=== PATIENT | male | born 1965 | race Asian ===

== ENCOUNTER 2020-02-26 15:47 | Emergency (ER) | payer MEDICAID ==
[~2020-02-26] VITALS: Ht 182.9 cm; Wt 99.8 kg
[2020-02-26 16:24] VITALS: BP 114/76
--- NOTE | 2020-02-26 16:47 | Diagnostic Imaging Report ---
EXAM: CT CT Head no Contrast INDICATION: Status post fall with head pain and slight dizziness. TECHNIQUE: Axial images of the brain were obtained with subsequent sagittal and coronal reformats. All CT scans at this facility are performed using dose modulation techniques as appropriate to a performed exam including the following: automated exposure control with adjustment of the mA and/or kV according to patient size. COMPARISON STUDY: None. RADIATION DOSE: CTDIvol: 53.4 mGy DLP: 912 mGy-cm Dose information generated by the CT scanner is available in PACS. FINDINGS: At the left frontal vertex on images 22-24, there is questionable subtle slight hyperdensity noted in the sulci adjacent to the gyral margin. With history of trauma, question possible tiny amount of subarachnoid hemorrhage. In the left basal ganglia and left hernandez radiata, subtle hypodensity noted likely microischemic in nature. No mass effect or shift demonstrated. Ventricles and cisterns as well as brainstem and posterior fossa appear unremarkable. The sellar region is normal. Sinuses, mastoid air cells and bony calvarium appear intact. IMPRESSION: Slight subtle hyperdensity noted at the left frontal vertex questionable for a tiny amount of subarachnoid hemorrhage. Recommend follow-up. Mild hypodensities in the left hernandez radiata as well as left basal ganglia most likely microischemic in nature. Findings called to the ED physician 02/18/2020 at 4:38 PM.
[2020-02-26 16:52] LABS: BASOPHILS % (AUTO) 1.4 % (0.0-2.0); EOSINOPHILS % (AUTO) 2.5 % (0.0-3.0); HEMATOCRIT 40.7 % (42.0-52.0); HEMOGLOBIN 14.1 G/DL (14.2-18.0); LYMPHOCYTES % (AUTO) 23.6 % (20.0-45.0); MEAN CORPUSCULAR VOLUME 88 FL (80-99); MONOCYTES % (AUTO) 8.3 % (1.0-10.0); NEUTROPHILS % (AUTO) 64.1 % (45.0-75.0); PLATELET COUNT 127 K/UL (150-450); RED BLOOD COUNT 4.62 M/UL (4.70-6.10); RED CELL DISTRIBUTION WIDTH 12.3 % (11.6-14.8); WHITE BLOOD COUNT 7.4 K/UL (4.8-10.8)
[2020-02-26 17:04] LABS: ANION GAP 6 mmol/L (5-15); BLOOD UREA NITROGEN 10 mg/dL (7-18); CALCIUM 8.8 MG/DL (8.5-10.1); CARBON DIOXIDE 29 MMOL/L (21-32); CHLORIDE 107 MMOL/L (98-107); POTASSIUM 4.1 MMOL/L (3.5-5.1); SODIUM 142 MMOL/L (136-145)
--- NOTE | 2020-02-26 17:05 | Emergency Room Report ---
History of Present Illness General Chief Complaint: Head Injury Source: Patient Present Illness HPI 54-year-old male with no symptom past medical history here complaining of headache and dizziness status post fall. Patient reports that he was in the shower earlier today and he slipped and fell and hurt his head the frontal lobe of his head to the side of the shower. Denies any loss of consciousness nausea or vomiting. Denies any blurry vision. Denies being on any blood thinners. Has not taken medication for symptom relief. This happened a few hours prior to arrival. Reports that his helped him get out of the shower. Denies chest pain, shortness of dizziness. Denies any vertigo, neurovascularly intact , no generalized or unilateral weakness noted. Patient does not have any slurred speech. Allergies: Coded Allergies: No Known Allergies (Unverified , 02/26/20) COVID-19 Screening Contact w/high risk pt: No Experienced COVID-19 symptoms?: No COVID-19 Testing performed [employer] REPRESENTATIVE: No Patient History Past Medical History: see triage record Past Surgical History: none Pertinent Family History: none Reviewed Nursing Documentation: PMH: Agreed; PSxH: Agreed Nursing Documentation-PMH Past Medical History: No Stated History Review of Systems All Other Systems: negative except mentioned in HPI Physical Exam Vital Signs Date Time Temp Pulse Resp B/P (MAP) Pulse Ox O2 Delivery O2 Flow Rate FiO2 02/26/20 15:49 98.4 75 18 114/76 (89) 99 Room Air Sp02 EP Interpretation: reviewed, normal General Appearance: no apparent distress, alert, GCS 15, non-toxic Head: normocephalic, other - Contusion noted on frontal lobe Eyes: bilateral eye normal inspection, bilateral eye PERRL ENT: hearing grossly normal, normal pharynx, no angioedema, normal voice Neck: full range of motion, supple/symm/no masses Respiratory: chest non-tender, lungs clear, normal breath sounds, no rhonchi, speaking full sentences Cardiovascular #1: regular rate, rhythm, no edema Gastrointestinal: normal bowel sounds, non tender, soft, non-distended, no guarding, no rebound Rectal: deferred Genitourinary: no CVA tenderness Musculoskeletal: back normal, normal range of motion, gait/station normal, non- tender Neurologic: alert, motor strength/tone normal, oriented x3, sensory intact, responsive, speech normal Psychiatric: judgement/insight normal, memory normal, mood/affect normal, no suicidal/homicidal ideation Skin: no rash Lymphatic: no adenopathy Medical Decision Making PA Attestation All my diagnosis and treatment plans were reviewed ad discussed with my supervising physician Dr. Valdivia Diagnostic Impression: Primary Impression: Head contusion Additional Impression: Head trauma ER Course 54-year-old male with no symptom past medical history here complaining of headache and dizziness status post fall. Patient reports that he was in the shower earlier today and he slipped and fell and hurt his head the frontal lobe of his head to the side of the shower. Denies any loss of consciousness nausea or vomiting. Denies any blurry vision. Denies being on any blood thinners. Has not taken medication for symptom relief. This happened a few hours prior to arrival. Reports that his helped him get out of the shower. Denies chest pain, shortness of dizziness. Denies any vertigo, neurovascularly intact , no generalized or unilateral weakness noted. Patient does not have any slurred speech. Ddx considered but are not limited to: cerebral hematoma, concussion, skull fracture, head contusion Vital signs: are WNL, pt. is afebrile H&PE are most consistent with: Head contusion, head trauma ORDERS: head CT no contrast, MRI no contrast of head, MRA no contrast of head, CBC, CMP, troponin, PT and PTT, tylenol, zofran ED INTERVENTIONS: None required at this time. Patient is stable to be discharged. Take medication as directed, follow-up primary care provider, if worsening symptoms return to the emergency room. CT/MRI/US Diagnostic Results CT/MRI/US Diagnostic Results #1: Imaging Test Ordered: CT head noncontrast Impression Questionable subarachnoid hemorrhage left frontal vertex CT/MRI/US Diagnostic Results #2: Imaging Test Ordered: MRI head no contrast Impression FINDINGS: Brain: No restricted diffusion to suggest acute infarct. Probable minimal chronic small vessel ischemic changes. No hemorrhage. Ventricles: Unremarkable. No ventriculomegaly. Bones/joints: Unremarkable. Sinuses: Mild mucosal thickening in the ethmoid air cells and frontal sinuses. No acute sinusitis. Mastoid air cells: Unremarkable as visualized. No mastoid effusion. Orbits: Unremarkable as visualized. IMPRESSION: No acute findings in the head/brain. CT/MRI/US Diagnostic Results #3: Imaging Test Ordered: MRA head no contrast Impression FINDINGS: Right internal carotid artery: No acute findings. Intracranial segment is patent with no significant stenosis. No aneurysm. Right anterior cerebral artery: Unremarkable. No occlusion or significant stenosis. No aneurysm. Right middle cerebral artery: Unremarkable. No occlusion or significant stenosis. No aneurysm. Right posterior cerebral artery: Unremarkable. No occlusion or significant stenosis. No aneurysm. Right vertebral artery: Unremarkable as visualized. Left internal carotid artery: No acute findings. Intracranial segment is patent with no significant stenosis. No aneurysm. Left anterior cerebral artery: Unremarkable. No occlusion or significant stenosis. No aneurysm. Left middle cerebral artery: Unremarkable. No occlusion or significant stenosis. No aneurysm. Left posterior cerebral artery: Unremarkable. No occlusion or significant stenosis. No aneurysm. Left vertebral artery: Unremarkable as visualized. Basilar artery: Unremarkable. No occlusion or significant stenosis. No aneurysm. IMPRESSION: Normal head/brain MRA. Last Vital Signs Date Time Temp Pulse Resp B/P (MAP) Pulse Ox O2 Delivery O2 Flow Rate FiO2 02/26/20 16:24 98.4 78 18 114/76 99 Room Air Disposition: HOME, SELF-CARE Condition: Stable Scripts No Active Prescriptions or Reported Meds Referrals: NOT CHOSEN IPA/MD,REFERRING (PCP) Patient Instructions: Head Injury, Adult Additional Instructions: Take medication as directed, follow-up with your primary care provider, strict precautions and return to emergency room if nausea, vomiting, worsening dizziness. At this time your MRI and MRA scans are negative and you have no bleeding in your brain. If worsening symptoms return to the emergency room Herman Gallegos Feb 26, 2020 17:05
[2020-02-26 17:08] LABS: ALANINE AMINOTRANSFERASE 23 U/L (12-78); ALBUMIN 3.9 G/DL (3.4-5.0); ALBUMIN/GLOBULIN RATIO 1.2 (1.0-2.7); ALKALINE PHOSPHATASE 104 U/L (46-116); ASPARTATE AMINO TRANSFERASE 19 U/L (15-37); BILIRUBIN,TOTAL 0.3 MG/DL (0.2-1.0)
--- NOTE | 2020-02-26 18:32 | Diagnostic Imaging Report ---
EXAM: MR Head Without Intravenous Contrast CLINICAL HISTORY: PAIN TECHNIQUE: Magnetic resonance images of the head/brain without intravenous contrast in multiple planes. COMPARISON: CT head on 02/26/2020 FINDINGS: Brain: No restricted diffusion to suggest acute infarct. Probable minimal chronic small vessel ischemic changes. No hemorrhage. Ventricles: Unremarkable. No ventriculomegaly. Bones/joints: Unremarkable. Sinuses: Mild mucosal thickening in the ethmoid air cells and frontal sinuses. No acute sinusitis. Mastoid air cells: Unremarkable as visualized. No mastoid effusion. Orbits: Unremarkable as visualized. IMPRESSION: No acute findings in the head/brain. <MYCVCSECTION> Communications: 02/26/20 18:47 Call From [facility] Dr. Valdivia
--- NOTE | 2020-02-26 18:34 | Diagnostic Imaging Report ---
EXAM: MR Angiography Head Without Intravenous Contrast CLINICAL HISTORY: PAIN TECHNIQUE: Magnetic resonance angiography images of the head without intravenous contrast. COMPARISON: None FINDINGS: Right internal carotid artery: No acute findings. Intracranial segment is patent with no significant stenosis. No aneurysm. Right anterior cerebral artery: Unremarkable. No occlusion or significant stenosis. No aneurysm. Right middle cerebral artery: Unremarkable. No occlusion or significant stenosis. No aneurysm. Right posterior cerebral artery: Unremarkable. No occlusion or significant stenosis. No aneurysm. Right vertebral artery: Unremarkable as visualized. Left internal carotid artery: No acute findings. Intracranial segment is patent with no significant stenosis. No aneurysm. Left anterior cerebral artery: Unremarkable. No occlusion or significant stenosis. No aneurysm. Left middle cerebral artery: Unremarkable. No occlusion or significant stenosis. No aneurysm. Left posterior cerebral artery: Unremarkable. No occlusion or significant stenosis. No aneurysm. Left vertebral artery: Unremarkable as visualized. Basilar artery: Unremarkable. No occlusion or significant stenosis. No aneurysm. IMPRESSION: Normal head/brain MRA.
[2020-02-26] MEDS ORDERED: ZOFRAN4 M1 ORAL (18:51)
[2020-02-26] MEDS ORDERED: TYLENOL EXTRA500 MG ORAL (18:51)
[2020-02-26 19:00] VITALS: BP 118/73
== END 2020-02-26 19:14 | disposition home or self-care (01) ==
LOC: EMR 16:00
DX: S00.93XA Contusion of unspecified part of head, initial encounter (principal); S09.90XA Unspecified injury of head, initial encounter; W01.0XXA Fall on same level from slipping, tripping and stumbling without subsequent striking against object, initial encounter; Y92.9 Unspecified place or not applicable
CPT/HCPCS: 36415; 70450; 70544; 70551; 80053; 84484; 85025; 85610; 85730; Z7502; 99284